=== PATIENT | female | born 1995 | race Caucasian/White ===

== ENCOUNTER 2017-02-28 11:30 | Emergency (ER) | payer OTHER ==
[2017-02-28 12:06] VITALS: BP 122/80
--- NOTE | 2017-02-28 12:55 | RAD ---
Indication: Right wrist trauma 3 views of the wrist demonstrates no fracture. No other bone or joint abnormality is identified. IMPRESSION: NO FRACTURE OF THE WRIST IS NOTED.
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
== END 2017-02-28 13:30 | disposition home or self-care (01) ==
LOC: UCEAST 11:30
DX: S63.501A Unspecified sprain of right wrist, initial encounter (principal); X50.9XXA Other and unspecified overexertion or strenuous movements or postures, initial encounter; Z91.030 Bee allergy status
CPT/HCPCS: 99212; G0463